=== PATIENT | female | born 1965 | race Caucasian/White ===

== ENCOUNTER 2018-02-14 16:02 | Emergency (ER) | payer BC ==
[2018-02-14 16:29] LABS: BEDSIDE GLUCOSE 111 MG/DL (70-105)
[2018-02-14] MEDS: NS 500 ML IV (16:44)
[2018-02-14 17:41] LABS: BASO % 0.6 % (0.0-1.0); EOS # 0.1 10^3/uL (0.0-0.50); EOS % 1.6 % (0.0-3.0); HEMATOCRIT 39.3 % (36.0-47.0); HEMOGLOBIN 13.4 g/dl (12.0-15.5); IMMATURE GRANULOCYTE % 0.3 % (0-3.0); LYMPH # 2.2 10^3/uL (1.5-4.5); LYMPH % 35.5 % (24.0-44.0); MEAN CORPUSCULAR HEMOGLOBIN 31.2 pg (27.0-33.0); MEAN CORPUSCULAR HGB CONC 34.1 g/dl (32.0-36.5); MEAN CORPUSCULAR VOLUME 91.4 fl (80.0-96.0); MONO # 0.3 10^3/uL (0.0-0.8); MONO % 4.8 % (0.0-5.0); NEUTROPHILS # 3.6 10^3/uL (1.8-7.7); NEUTROPHILS % 57.2 % (36.0-66.0); PLATELET COUNT, AUTOMATED 248 10^3/uL (150-450); RED CELL DISTRIBUTION WIDTH 13.6 % (11.5-14.5); WHITE BLOOD COUNT 6.3 10^3/uL (4.0-10.0)
[2018-02-14 17:58] LABS: VENOUS BASE EXCESS -8.5 (-2.0-2.0); VENOUS HCO3 17.2 MEQ/L (23.0-27.0); VENOUS O2 SATURATION 89.7 % (60.0-80.0); VENOUS PARTIAL PRESSURE CO2 36.3 mmHg (38.0-50.0); VENOUS PARTIAL PRESSURE O2 59.5 mmHg (30.0-50.0); VENOUS PH 7.294 UNITS (7.330-7.430); VENOUS STANDARD HCO3 17.6 MEQ/L; VENOUS TOTAL CO2 18.3 MEQ/L (24.0-28.0)
[2018-02-14 18:09] LABS: AMMONIA 20 uMOL/L (<32)
[2018-02-14 18:15] LABS: ACETAMINOPHEN LEVEL 3.5 UG/ML (10.0-30.0); ALBUMIN/GLOBULIN RATIO 1.43 (1.00-1.93); ALKALINE PHOSPHATASE 57 U/L (45-117); ALT/SGPT 19 U/L (12-78); ANION GAP 11 MEQ/L (8-16); AST/SGOT 8 U/L (7-37); BILIRUBIN,DIRECT < 0.1 MG/DL (0.0-0.2); BILIRUBIN,TOTAL 0.3 MG/DL (0.2-1.0); BLOOD UREA NITROGEN 17 MG/DL (7-18); CARBON DIOXIDE LEVEL 21 MEQ/L (21-32); CHLORIDE LEVEL 112 MEQ/L (98-107); CPK CREATINE PHOSPHOKINASE 69 U/L (26-192); CREATININE FOR GFR 0.76 MG/DL (0.55-1.30); ETHYL ALCOHOL (ETHANOL) < 0.003 % (0.000-0.010); GLOMERULAR FILTRATION RATE > 60.0 (>51); GLUCOSE, FASTING 95 MG/DL (70-100); MB/CK RELATIVE INDEX 2.75 (< OR =4); POTASSIUM SERUM 3.4 MEQ/L (3.5-5.1); SALICYLATE LEVEL < 1.7 MG/DL (5.0-30.0); SODIUM LEVEL 144 MEQ/L (136-145); TOTAL PROTEIN 6.8 GM/DL (6.4-8.2); TROPONIN I < 0.02 NG/ML (< 0.10)
[2018-02-14 19:10] LABS: AMPHETAMINES LEVEL URINE NEGATIVE (NEGATIVE); BARBITURATES URINE NEGATIVE (NEGATIVE); BENZODIAZEPINES URINE NEGATIVE (NEGATIVE); CANNABINOIDS URINE NEGATIVE (NEGATIVE); COCAINE METABOLITE URINE NEGATIVE (NEGATIVE); METHADONE URINE NEGATIVE (NEGATIVE); OPIATES URINE NEGATIVE (NEGATIVE); PHENCYCLIDINE URINE NEGATIVE (NEGATIVE)
== END 2018-02-14 19:48 | disposition home or self-care (01) ==
LOC: M ED 16:02
DX: R53.83 Other fatigue (principal); R94.31 Abnormal electrocardiogram [ECG] [EKG]; E11.9 Type 2 diabetes mellitus without complications; I10 Essential (primary) hypertension; E78.5 Hyperlipidemia, unspecified; Z86.69 Personal history of other diseases of the nervous system and sense organs; Z88.8 Allergy status to other drugs, medicaments and biological substances; Z88.5 Allergy status to narcotic agent
CPT/HCPCS: 70450

== ENCOUNTER → 2018-04-17 | Outpatient (REF) | payer BC ==
[2018-04-17 13:48] LABS: BASO # 0.1 10^3/uL (0.0-0.2); BASO % 1.2 % (0.0-1.0); EOS # 0.2 10^3/uL (0.0-0.50); EOS % 3.9 % (0.0-3.0); HEMATOCRIT 40.3 % (36.0-47.0); HEMOGLOBIN 13.1 g/dl (12.0-15.5); IMMATURE GRANULOCYTE % 0.2 % (0-3.0); LYMPH % 38.5 % (24.0-44.0); MEAN CORPUSCULAR HEMOGLOBIN 30.3 pg (27.0-33.0); MEAN CORPUSCULAR HGB CONC 32.5 g/dl (32.0-36.5); MEAN CORPUSCULAR VOLUME 93.3 fl (80.0-96.0); MONO # 0.3 10^3/uL (0.0-0.8); MONO % 5.8 % (0.0-5.0); NEUTROPHILS # 2.6 10^3/uL (1.8-7.7); NEUTROPHILS % 50.4 % (36.0-66.0); PLATELET COUNT, AUTOMATED 291 10^3/uL (150-450); RED BLOOD COUNT 4.32 10^6/uL (4.00-5.40); RED CELL DISTRIBUTION WIDTH 13.3 % (11.5-14.5); WHITE BLOOD COUNT 5.2 10^3/uL (4.0-10.0)
[2018-04-17 14:17] LABS: ERYTHROCYTE SEDIMENTATION RATE 5 mm/hr (0-30)
[2018-04-17 14:19] LABS: ALBUMIN 3.6 GM/DL (3.2-5.2); ALBUMIN/GLOBULIN RATIO 1.13 (1.00-1.93); ALKALINE PHOSPHATASE 55 U/L (45-117); ALT/SGPT 20 U/L (12-78); ANION GAP 10 MEQ/L (8-16); AST/SGOT 10 U/L (7-37); BILIRUBIN,TOTAL 0.2 MG/DL (0.2-1.0); BLOOD UREA NITROGEN 17 MG/DL (7-18); CALCIUM LEVEL 8.3 MG/DL (8.5-10.1); CARBON DIOXIDE LEVEL 21 MEQ/L (21-32); CHLORIDE LEVEL 111 MEQ/L (98-107); CREATININE FOR GFR 0.72 MG/DL (0.55-1.30); GLOMERULAR FILTRATION RATE > 60.0 (>51); GLUCOSE, FASTING 149 MG/DL (70-100); POTASSIUM SERUM 4.4 MEQ/L (3.5-5.1); RHEUMATOID FACTOR QUANT < 10.0 IU/ML (<15.0); SODIUM LEVEL 142 MEQ/L (136-145); TOTAL 25(OH) VITAMIN D 23.4 NG/ML (30.0-100.0); TOTAL PROTEIN 6.8 GM/DL (6.4-8.2)
[2018-04-18 14:19] LABS: ANTINUCLEAR ANTIBODIES DIRECT Negative (Negative)
== END ==
LOC: M LABNEURO 09:33
DX: R51 Headache (principal)
CPT/HCPCS: 84443

== ENCOUNTER → 2018-04-23 | Outpatient (CLI) | payer BC ==
[~2018-04-23] MED LIST: GASTROGRAFIN SOLUTION 30ML (Q9963) As Ordered; ISOVUE-370 76% 100ML VIAL (Q9967) As Ordered
== END ==
LOC: M RAD 14:41
DX: R10.9 Unspecified abdominal pain (principal); K86.1 Other chronic pancreatitis
CPT/HCPCS: Q9963

== ENCOUNTER → 2018-09-23 | Outpatient (CLI) | payer BC ==
[~2018-09-23] MED LIST changes: +ACET-683 PO; +DICY20TA11 PO; +GABA-1171 PO; -GASTROGRAFIN SOLUTION 30ML (Q9963) As Ordered; -ISOVUE-370 76% 100ML VIAL (Q9967) As Ordered; +JARD1TAB3 PO; +LANTINJ4 SC; +LOSA25TA14 PO; +MECL1CHW PO; +METF-699 PO; +METHACHOLINE KIT (J7674) INH ONE; +NORT10CA2 PO; +ONDA4TAB6 PO; +OXYC-517 PO; +PANT-23 PO; +RANI300C PO; +TOPI100T9 PO; +XALA0.007 OD; +XARE20TA PO
--- NOTE | 2018-09-23 09:31 | PFTRPT ---
Site: [facility], [address] [place], [address] ID: [id number] Name: KARISSA WATERS Visit Date: 09/23/2018 Second ID: [id number] Referring Doctor: Silvia Acevedo DO Reviewing Doctor: Marcus Navarro MD Chinese Teacher: Carol MERCHANT RRT Age: 53 : 1965 Sex: Female Race: Height: 64.00 Inches Weight: 165.00 Lbs BSA: 1.80 Order IDs: [id number] Requested Test(s): <RESP-PFT.METH CHAL> Diagnosis: SOB of albuterol for postbronchodilator. Review Status: Not Reviewed Pre-Bronch Post-Bronch Pred Actual %Pred Actual %Chng SPIROMETRY FVC (L) 3.42 3.27 95 3.44 5 FEV1 (L) 2.68 2.72 101 2.67 -1 FEV1/FVC (%) 79 83 105 78 -6 FEF 25% (L/sec) 5.09 6.09 119 5.26 -13 FEF 50% (L/sec) 3.76 4.05 107 3.34 -17 FEF 75% (L/sec) 1.32 1.17 88 1.10 -5 FEF 25-75% (L/sec) 2.54 2.91 114 2.65 -9 FEF Max (L/sec) 6.52 6.22 95 5.71 -8 FIVC (L) 3.04 3.29 7 FIF 50% (L/sec) 3.60 4.48 124 4.59 2 FIF Max (L/sec) 4.58 4.61 Expiratory Time (sec) 6.62 6.82 3 Back Extrap Vol (L) 0.10 0.13 26 Time To FEFmax (sec) 0.110 0.090 -18
== END ==
LOC: M CARPUL 08:33
PROVIDERS: ATTEND Internal Medicine
DX: R06.02 Shortness of breath (principal)
CPT/HCPCS: 94070; J7674

== ENCOUNTER → 2019-01-09 | Outpatient (CLI) | payer BC ==
[~2019-01-09] MED LIST changes: -METHACHOLINE KIT (J7674) INH ONE
--- NOTE | 2019-01-09 17:22 | REP ---
Left upper extremity deep vein duplex ultrasound: The The deep veins demonstrate normal compression, normal Doppler color flow and normal Doppler waveforms with respiration augmentation at multiple levels from the brachial veins to the jugular vein. Impression: There is no left upper extremity deep vein thrombus. Electronically Signed by Gilbert Kerns MD 01/09/2019 05:14 P
== END ==
LOC: M RAD 16:25
PROVIDERS: ATTEND Psychiatry & Neurology Neurology
DX: R22.32 Localized swelling, mass and lump, left upper limb (principal)

== ENCOUNTER → 2021-05-22 | Outpatient (REF) | payer BC ==
[~2021-05-22] MED LIST changes: -METF-699 PO; +METF-817 PO
[2021-05-22 17:14] LABS: APPEARANCE, URINE CLOUDY (CLEAR); BACTERIA, URINE AUTO NEGATIVE (NEGATIVE); BILIRUBIN, URINE AUTO NEGATIVE (NEGATIVE); BLOOD, URINE BLOOD 1+ (NEGATIVE); COLOR, URINE YELLOW (YELLOW); GLUCOSE, URINE (UA) AUTO 3+ mg/dL (NEGATIVE); KETONE, URINE AUTO TRACE mg/dL (NEGATIVE); LEUKOCYTE ESTERASE, URINE AUTO 3+ (NEGATIVE); NITRITE, URINE AUTO POSITIVE (NEGATIVE); PROTEIN, URINE AUTO 1+ mg/dL (NEGATIVE); RBC, URINE AUTO 33 /HPF (0-3); SPECIFIC GRAVITY URINE AUTO 1.036 (1.002-1.035); SQUAMOUS EPITHELIAL CELL UR AU 4 /HPF (0-6); UROBILINOGEN, URINE AUTO 0.2 mg/dL (0.0-2.0); WBC, URINE AUTO TNTC /HPF (0-3)
== END ==
LOC: M LAB REF 16:27
PROVIDERS: ATTEND Internal Medicine
DX: R30.0 Dysuria (principal)

== ENCOUNTER → 2021-09-08 | Outpatient (REF) | payer BC ==
[~2021-09-08] MED LIST changes: -DICY20TA11 PO; +DICY20TA20 PO; +LOSA25TA13 PO; -LOSA25TA14 PO
== END ==
LOC: M LAB REF 16:24
PROVIDERS: ATTEND Internal Medicine
DX: R30.0 Dysuria (principal)

== ENCOUNTER → 2023-05-31 | Outpatient (REF) | payer BC | LOC: M LAB REF 15:16 | PROVIDERS: ATTEND Internal Medicine | DX: R42 Dizziness and giddiness (principal) ==

== ENCOUNTER → 2023-11-12 | Outpatient (CLI) | payer BC ==
[~2023-11-12] MED LIST changes: +ONDA-282 PO; -ONDA4TAB6 PO
== END ==
LOC: M RAD 16:41
PROVIDERS: ATTEND Internal Medicine
DX: M79.605 Pain in left leg (principal)

== ENCOUNTER 2025-04-05 10:59 | Day surgery (SDC) | payer BC ==
[~2025-04-05] VITALS: Ht 162.6 cm; Wt 90.2 kg
[~2025-04-05 10:59] MED LIST changes: +BASA100I SQ; +CYCLOPENTOLATE 1% OPHTH SOLN 2 ML BTL OS SCH; +FAMO40TA3 PO; +HUMA100I3 SC; +HUMA100I5 SQ; +LINZ145C PO; +LR 1,000 ML IV SCH; +MAGN400C2 PO; +MECL-86 PO; +METF-1156 PO; -METF-817 PO; +MIRA3350 PO; +OMEP40CA5 PO; +PHEN37.511 PO; +PHENYLEPHRINE 2.5% OPHTH SOL 2ML OS SCH; +SYNJ1TAB15 PO; +TELM1TAB33 PO; +TETRACAINE 0.5% OPHTH SOLN 4ML OS SCH; +TOPI-257 PO; -TOPI100T9 PO; +TRYPAN BLUE 0.06 % 2.25 ML OPHTH SYR (VISIONBLUE) As Ordered ONE; +VITA-172 PO; +XARE15TA PO
[2025-04-05] MEDS ORDERED: MIDAZOLAM 5 MG/ML 1 ML VIAL As Ordered ONE (14:08)
[2025-04-05] MEDS ORDERED: FLURBIPROFEN 0.03% OPHTH SOLN 2.5 ML OS SCH (14:30)
[2025-04-05] MEDS: LIDOCAINE 1% SDV 5 ML VIAL As Ordered ONE (14:56)
[2025-04-05] MEDS: CEFUROXIME 1 MG/0.1 ML INTRACAMERAL INJ As Ordered ONE (14:56)
[2025-04-05 15:20] VITALS: BP 148/80; TEMP 97; O2SAT 96
== END 2025-04-05 15:32 | disposition home or self-care (01) ==
LOC: M SDC 10:59
PROVIDERS: ATTEND Ophthalmology
DX: E11.36 Type 2 diabetes mellitus with diabetic cataract (principal); H25.12 Age-related nuclear cataract, left eye; I10 Essential (primary) hypertension; E11.40 Type 2 diabetes mellitus with diabetic neuropathy, unspecified; D68.51 Activated protein C resistance; K58.9 Irritable bowel syndrome, unspecified; K21.9 Gastro-esophageal reflux disease without esophagitis; Z79.899 Other long term (current) drug therapy; Z79.4 Long term (current) use of insulin; Z79.01 Long term (current) use of anticoagulants; Z86.718 Personal history of other venous thrombosis and embolism; Z86.73 Personal history of transient ischemic attack (TIA), and cerebral infarction without residual deficits; Z88.5 Allergy status to narcotic agent; Z88.6 Allergy status to analgesic agent
CPT/HCPCS: 66984; J0697; J2250; J3010; V2632